=== PATIENT | female | born 1965 | race Caucasian/White ===

== ENCOUNTER → 2019-01-01 | Outpatient (CLI) | payer BC ==
--- NOTE | 2019-01-01 09:13 | XR ---
EXAMINATION TYPE: XR foot complete LT DATE OF EXAM: 01/01/2019 CLINICAL HISTORY: Intermittent left heel pain that is chronic TECHNIQUE: Frontal, lateral, and oblique images of the left foot are obtained. COMPARISON: None FINDINGS: There is no acute fracture/dislocation evident in the left foot. There is a mild hallux v algus deformity. Flexion deformities are seen of the proximal interphalangeal joints and distal inter phalangeal joints somewhat limiting evaluation. Bony productive changes seen of the dorsal midfoot an d forefoot. There are small plantar and Achilles enthesophytes. The joint spaces in the left foot edgar ear within normal limits. The overlying soft tissue appears unremarkable. IMPRESSION: There is no acute fracture or dislocation in the left foot. Small plantar and Achilles e nthesophytes in this patient with heel pain. Mild forefoot and midfoot arthropathy.
== END | disposition home or self-care (01) ==
LOC: RADXRYALE 08:49
PROVIDERS: ATTEND Internal Medicine
DX: M19.072 Primary osteoarthritis, left ankle and foot (principal)

== ENCOUNTER → 2020-02-10 | Outpatient (CLI) | payer BC ==
--- NOTE | 2020-02-10 10:45 | XR ---
EXAMINATION TYPE: XR chest 2V DATE OF EXAM: 02/10/2020 COMPARISON: 04/14/2014 TECHNIQUE: PA and lateral views submitted. HISTORY: Cough FINDINGS: The lungs are clear and there is no pneumothorax, pleural effusion, or focal pneumonia. Chronic edgar earing superior endplate compression deformity midthoracic spine. Calcified granuloma right upper lob e. No overt failure. Heart size normal. Hypertrophic and degenerative changes of the spine. IMPRESSION: 1. No acute process. Stable right upper lobe benign calcified granuloma.
== END | disposition home or self-care (01) ==
LOC: RADXRYALE 10:19
PROVIDERS: ATTEND Physician Assistant Medical
DX: J84.10 Pulmonary fibrosis, unspecified (principal); F17.210 Nicotine dependence, cigarettes, uncomplicated
CPT/HCPCS: 71046

== ENCOUNTER → 2022-04-26 | Outpatient (CLI) | payer BC ==
--- NOTE | 2022-04-26 15:50 | XR ---
EXAMINATION TYPE: XR chest 2V DATE OF EXAM: 04/26/2022 COMPARISON: 02/10/2020 HISTORY: Smoker with cough TECHNIQUE: Frontal and lateral views of the chest are obtained. FINDINGS: There is no focal air space opacity, pleural effusion, or pneumothorax seen. The cardiac silhouette size is within normal limits. The osseous structures are intact. Note is made of a small calcified pulmonary nodule in the right upper lobe which was seen previously and is stable IMPRESSION: No acute cardiopulmonary process.
== END | disposition home or self-care (01) ==
LOC: RADXRYALE 15:33
PROVIDERS: ATTEND Internal Medicine
DX: J20.8 Acute bronchitis due to other specified organisms (principal)
CPT/HCPCS: 71046

== ENCOUNTER → 2025-01-19 | Outpatient (CLI) | payer BC ==
--- NOTE | 2025-01-19 14:55 | XR ---
EXAMINATION TYPE: XR chest 2V DATE OF EXAM: 01/19/2025 2:43 PM COMPARISON: 04/26/2022 CLINICAL INDICATION: Female, 59 years old with history of J449 COPD: Shortness of breath TECHNIQUE: XR chest 2V views of the chest are obtained. FINDINGS: Scattered senescent parenchymal changes noted. Hyperinflation compatible with COPD. No evidence for infiltrate. No evidence for atelectasis. Heart size is stable. Mediastinal structures are stable and grossly unremarkable. No evidence for hilar prominence. Degenerative changes dorsal spine. IMPRESSION: 1. No evidence for acute pulmonary disease. [facility], , 01/19/2025 2:53 PM
== END | disposition home or self-care (01) ==
LOC: RADXRYALE 14:29
PROVIDERS: ATTEND Internal Medicine
DX: J44.9 Chronic obstructive pulmonary disease, unspecified (principal)
CPT/HCPCS: 71046